=== PATIENT | female | born 1985 | race American Indian/Alaskan Native ===

== ENCOUNTER 2017-06-23 19:19 | Emergency (ER) | payer BC, MEDICAID, OTHER ==
[2017-06-23 19:23] VITALS: BP 134/81
[2017-06-23] MEDS ORDERED: methylPREDNISolone Acetate 80 MG/ML SDV IM ONE (19:44)
[2017-06-23] MEDS ORDERED: diphenhydrAMINE 50 MG/ML SDV IM ONE (19:45)
--- NOTE | 2017-06-23 19:51 | EDM.PDOC ---
ED HPI GENERAL MEDICAL PROBLEM - General Chief Complaint: Skin Complaint Stated Complaint: cellulitis Time Seen by Provider: 06/23/17 19:40 Source of Information: Reports: Patient History Limitations: Reports: No Limitations - History of Present Illness INITIAL COMMENTS - FREE TEXT/NARRATIVE: Was stung by an insect yesterday morning lateral to the left knee. Area is red and warm and swollen. Swelling is to the lateral lower leg. Knee is stiff and difficult to bend due to the swelling. No drainage noted from the area. No difficulty swallowing or breathing noted. 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 , Therapeutic Hematologic History: Reports: Anemia Social & Family History - Family History Family Medical History: Noncontributory - Tobacco Use Smoking Status *Q: Current Some Day Smoker Years of Tobacco use: 10 Packs/Tins Daily: 0.1 Used Tobacco, but Quit: Yes Month Tobacco Last Used: 02 Second Hand Smoke Exposure: Yes - Caffeine Use Caffeine Use: Reports: None Other Caffeine Use: patient denies - Recreational Drug Use Recreational Drug Use: No ED ROS GENERAL - Review of Systems Review Of Systems: See Below Constitutional: Denies: Fever, Chills HEENT: Denies: Throat Swelling Respiratory: Denies: Wheezing Cardiovascular: Denies: Chest Pain Skin: Reports: Pruritis, Erythema ED EXAM, SKIN/RASH Exam: See Below Exam Limited By: No Limitations General Appearance: Alert, WD/WN, No Apparent Distress Throat/Mouth: Normal Inspection, Normal Oropharynx, No Airway Compromise Head: Normocephalic Neck: Normal Inspection, Supple, Non-Tender Respiratory/Chest: No Respiratory Distress, Lungs Clear, Normal Breath Sounds. No: Wheezing Cardiovascular: Regular Rate, Rhythm Skin: Warm, Dry, Intact, Erythema, Increased Warmth Location, Skin: Lower Extremity, Left (Has sting area lateral to the knee cap on the left knee. area surrounding it is red and warm and swollen laterally to the mid calf. area is warm to touch but no drainage noted from the area.) Associated features: Warmth, Swelling. No: Weeping Course - Vital Signs Last Recorded V/S: Last Vital Signs Temp 98.4 F 06/23/17 19:22 Pulse 89 06/23/17 19:22 Resp 18 06/23/17 19:22 BP 134/81 06/23/17 19:22 Pulse Ox 100 06/23/17 19:22 - Orders/Labs/Meds Orders: Active Orders 24 hr Category Date Time Status diphenhydrAMINE [Benadryl] Med 06/23/17 19:45 Once 50 mg IM ONETIME ONE methylPREDNISolone Acetate [Depo-Medrol] Med 06/23/17 19:44 Once 80 mg IM ONETIME ONE Departure - Departure Time of Disposition: 19:50 Disposition: Home, Self-Care 01 Condition: Good Clinical Impression: Sting from hornet, wasp, or bee Qualifiers: Encounter type: initial encounter Injury intent: accidental or unintentional Qualified Code(s): T63.451A - Toxic effect of venom of hornets, accidental ( unintentional), initial encounter; T63.441A - Toxic effect of venom of bees, accidental (unintentional), initial encounter; T63.441A - Toxic effect of venom of bees, accidental (unintentional), initial encounter; T63.461A - Toxic effect of venom of wasps, accidental (unintentional), initial encounter; T63.461A - Toxic effect of venom of wasps, accidental (unintentional), initial encounter - Discharge Information Referrals: PCP,None [Primary Care Provider] - Additional Instructions: ice to the area to help with the swelling elevate the leg to help with the swelling take benadryl 25 mg every 4-6 hours to help with the swelling and allergic reaction. Recheck with primary care provider in the clinic if not improving. - Problem List & Annotations (1) Sting from hornet, wasp, or bee SNOMED Code(s): 035018036 Code(s): T63.451A - TOXIC EFFECT OF VENOM OF HORNETS, ACCIDENTAL, INIT; T63.441A - TOXIC EFFECT OF VENOM OF BEES, ACCIDENTAL, INIT; T63.461A - TOXIC EFFECT OF VENOM OF WASPS, ACCIDENTAL, INIT Status: Acute Priority: High Current Visit: Yes Qualifiers: Encounter type: initial encounter Injury intent: accidental or unintentional Qualified Code(s): T63.451A - Toxic effect of venom of hornets, accidental (unintentional), initial encounter; T63.441A - Toxic effect of venom of bees, accidental (unintentional), initial encounter; T63.441A - Toxic effect of venom of bees, accidental (unintentional), initial encounter; T63.461A - Toxic effect of venom of wasps, accidental (unintentional), initial encounter; T63.461A - Toxic effect of venom of wasps, accidental (unintentional), initial encounter - Problem List Review Problem List Initiated/Reviewed/Updated: Yes - My Orders Last 24 Hours: My Active Orders 06/23/17 19:44 methylPREDNISolone Acetate [Depo-Medrol] 80 mg IM ONETIME ONE 06/23/17 19:45 diphenhydrAMINE [Benadryl] 50 mg IM ONETIME ONE - Assessment/Plan Last 24 Hours: My Active Orders 06/23/17 19:44 methylPREDNISolone Acetate [Depo-Medrol] 80 mg IM ONETIME ONE 06/23/17 19:45 diphenhydrAMINE [Benadryl] 50 mg IM ONETIME ONE
== END 2017-06-23 20:05 | disposition home or self-care (01) ==
LOC: CC.ED 19:19
DX: T63.484A Toxic effect of venom of other arthropod, undetermined, initial encounter (principal); F17.210 Nicotine dependence, cigarettes, uncomplicated; Z79.899 Other long term (current) drug therapy
CPT/HCPCS: 96372; 99282; J1040; J1200